=== PATIENT | female | born 1970 | race Caucasian/White ===

== ENCOUNTER → 2021-07-01 | Outpatient (CLI) | payer OTHER ==
--- NOTE | 2021-07-01 13:21 | RAD ---
EXAMINATION: US ABDOMEN COMPLETE 07/01/2021 9:07 AM INDICATION: Dyspepsia, hepatomegaly, fullness TECHNIQUE: Carney scale and color Doppler ultrasound images of the abdomen were obtained. COMPARISON: None. FINDINGS: Liver: The liver is enlarged measuring 22.6 cm in length and diffusely increased in hepatic echogenic ity. No focal liver lesion. Gallbladder: The gallbladder is normal in caliber. No cholelithiasis or sludge. The gallbladder wa ll is normal in thickness measuring 2 mm. Bile ducts: The common bile duct is normal measuring 4 mm. No intrahepatic biliary duct dilatation. Kidneys: The right kidney measures 12.1 x 5.2 x 4.4 cm. The left kidney measures 12.0 x 4.8 x 5.8 cm . Normal cortical thickness and echogenicity bilaterally. No hydronephrosis. Spleen: Spleen is normal measuring 11.9 cm. Other: The proximal abdominal aorta is obscured by bowel gas. Mid to distal abdominal aorta is normal caliber. IVC is patent at the level the liver. The visualized portion of the pancreas is heterogeneo us in appearance, nonspecific. IMPRESSION: 1. Hepatomegaly and hepatic steatosis. 2. Proximal aorta is obscured by bowel gas. 3. Heterogeneous appearance of the pancreas, nonspecific. Electronically signed by: Jenna Forrest MD (07/01/2021 1:19 PM) [id number]
== END ==
LOC: US 09:01
PROVIDERS: ATTEND General Practice
DX: R16.0 Hepatomegaly, not elsewhere classified (principal); K76.0 Fatty (change of) liver, not elsewhere classified; K30 Functional dyspepsia
CPT/HCPCS: 76700